=== PATIENT | male | born 1955 | race Caucasian/White ===

== ENCOUNTER → 2024-03-27 | Outpatient (CLI) | payer OTHER, SELFPAY ==
[2024-03-27 08:36] LABS: Glucose Estimated Average 140 mg/dL (80-131); Hemoglobin A1C 6.5 % Hgb (4.8-6.0)
[2024-03-27 08:41] LABS: Prostate Specific Antigen 0.29 ng/mL (0-4.00)
== END | disposition home or self-care (01) ==
LOC: COPL 07:25
PROVIDERS: PCP Family Medicine; Referring Provider Family Medicine; Visit Provider Family Medicine
DX: E11.65 Type 2 diabetes mellitus with hyperglycemia (principal)
CPT/HCPCS: 36415; 83036; 84153

== ENCOUNTER → 2024-04-09 | Outpatient (CLI) | payer OTHER, SELFPAY ==
[2024-04-09 12:45] LABS: Cardiac Risk Estimate 5.8 RATIO (4.0-6.7); Cholesterol 239 mg/dL (132-200); HDL Cholesterol 41 mg/dL (40-60); LDL Cholesterol,Calculated 121 mg/dL (0-130); Triglycerides 385 mg/dL (30-150)
[2024-04-09 12:58] LABS: Creatinine MALB Rnd Ur 19 mg/dL (30-125); Microalbumin, Random Urine < 3 mg/L (0-300)
== END | disposition home or self-care (01) ==
PROVIDERS: PCP Family Medicine; Referring Provider Family Medicine; Visit Provider Family Medicine
DX: E11.65 Type 2 diabetes mellitus with hyperglycemia (principal); E78.00 Pure hypercholesterolemia, unspecified
CPT/HCPCS: 36415; 80061; 82043; 82570

== ENCOUNTER 2024-06-19 06:36 | Day surgery (SDC) | payer OTHER, SELFPAY ==
[2024-06-17 08:49] VITALS: BMI 28.5
--- NOTE | 2024-06-17 08:59 | EKG_ITS ---
[facility] Test Date: 2024-06-17 Pat Name: ZACKERY WRIGHT Department: Room: - Gender: Male [employer]: TYLER : 1955 Requested By: Anurag Hdez Order Number: [id number] Reading MD: Anurag Hdez Measurements Intervals [place] Rate: 74 P: 17 NV: 177 QRS: 9 QRSD: 98 T: 53 QT: 415 QTc: 461 Interpretive Statements SINUS RHYTHM No previous ECG available for comparison /store/S0/[id number]
[2024-06-17 12:29] LABS: Basophils # (Auto) 0.1 Thou/mm3 (0.0-0.2); Basophils % (Auto) 1 % (0-2.5); Eosinophils # (Auto) 0.1 Thou/mm3 (0.0-0.5); Eosinophils % (Auto) 2 % (0-10); Hematocrit 42.2 % (41.0-53.0); Hemoglobin 14.5 g/dL (13.5-16.0); Immature Granulocytes % (Auto) 0 % (0-0); Immature Granulocytes Auto 0.02 Thou/mm3 (0.00-0.00); Lymphocytes # (Auto) 2.3 Thou/mm3 (1.0-4.8); Lymphocytes % (Auto) 36 % (10-50); Mean Corpuscular HGB Conc 34.4 g/dl (31.0-37.0); Mean Corpuscular Hemoglobin 32.4 pg (25.0-35.0); Mean Corpuscular Volume 94 fL (80-100); Monocytes # (Auto) 0.7 Thou/mm3 (0.0-0.8); Monocytes % (Auto) 11 % (0-12); Neutrophils # (Auto) 3.1 Thou/mm3 (1.8-7.7); Neutrophils % (Auto) 50 % (37-80); Nucleated Red Blood Cell % 0 /100 WBC (0); Platelet Count 522 Thou/mm3 (140-440); RDW Standard Deviation 42.5 fL (35.1-43.9); Red Blood Count 4.47 Miln/mm3 (4.50-5.90); White Blood Count 6.2 Thou/mm3 (3.8-10.6)
[2024-06-17 12:41] LABS: Anion Gap 9 (7-16); BUN/Creatinine Ratio 19 Ratio (12-20); Blood Urea Nitrogen 19 mg/dL (9-23); Carbon Dioxide 26.6 mMol/L (20.0-31.0); Chloride 103 mMol/L (98-107); Estimated Creatinine Clearance 74.7 mL/min (>60); Glucose 160 mg/dL (74-106); Osmolality,Calculated 282 (275-295); Potassium 4.4 mMol/L (3.4-5.1); Sodium 139 mMol/L (136-145); eGFR > 60 See Note
[2024-06-17 12:48] LABS: Partial Thromboplastin Time 27.2 Seconds (22.0-36.0); Prothrombin Time 10.5 Seconds (9.0-12.2)
[2024-06-19] VITALS (23 sets, daily range): BP systolic 155–197; BP diastolic 83–121; PULSE 70–89; RESP 13–20; TEMP 36.2–36.5; O2SAT 94–96
[2024-06-19] MEDS: HYDROcodone/APAP 5/325 TABLET 1 TAB PO (09:25)
[2024-06-19] MEDS: hydrALAZINE INJ 20 MG/ML VIAL 10 MG IV (09:26)
--- NOTE | 2024-06-19 10:20 | PC.NURSE ---
0908 patient is awake, alert, breathing unlabored, s/p C with PCI, TR band to right wrist, no bleeding or hematoma noted, will wait 2hrs to remove air from TR band. Report received from Hunter TORRES, patient to recover for 4 hrs and be discharged home 1hr after TR band removal. New medication brilinta will be ordered by . Pt having headache, norco ordered by dr Lou, will have patient eat jello, then give norco pain pill. 0925 norco given after eathing jello and sips of water. 1000 patient ambulated to bathroom and voided 1023 patient eating breakfast with family at bedside
--- NOTE | 2024-06-19 11:35 | PC.NURSE ---
1112 report given to jl mensah 1130 report received from jl mensah
--- NOTE | 2024-06-19 12:21 | PC.NURSE ---
1215 Tr band removed, no bleeding or hematoma noted
--- NOTE | 2024-06-19 12:55 | PC.NURSE ---
Dr. Lou at bedside talking to patient and family, new order received for amlodipine 5mg PO now
[2024-06-19] MEDS: amLODIPine BESYLATE 5 MG TABLET PO (12:57)
--- NOTE | 2024-06-19 13:06 | ESOP_ITS ---
RE: ZACKERY WRIGHT : 1955 DATE OF OPERATION: 06/19/2024 PROCEDURES PERFORMED: 1. Diagnostic left heart cardiac catheterization, selective coronary angiogram, and left ventricular angiogram, CPT 57128. 2. PCI/PTCA stent placement of the posterior descending branch of the right coronary artery, placement of drug-eluting stent, 2.25 x 26 mm Medtronic [place] drug-eluting stent, preprocedure stenosis 99%, post procedure stenosis 0%, BHASKAR flow preprocedure 2 and postprocedure 3. cpt 04986 RC 3. Additional vessel PTCA and angioplasty of the posterolateral branch of the right coronary artery with placement of drug-eluted stent 2.75 x 12 mm Synergy stent, preprocedure stenosis 90%, postprocedure stenosis 0%. BHASKAR flow preprocedure 3, postprocedure 3, CPT 36007. RC 59 4. Ultrasound-guided access of the right radial artery. 5. Conscious sedation 1 hour duration. DIAGNOSES: Angina pectoris with abnormal stress test. HISTORY AND INDICATIONS: The patient is a 68-year-old male with a history of hypertension, diabetes, and hypercholesterolemia, family history of heart disease. He has recurrent shortness of breath and chest pressure, class 3 angina. Cardiac stress test and nuclear scan showed inferior wall ischemia, coronary angiogram and cardiac catheterization was recommended to assess the patient is a candidate for coronary intervention and revascularization. DESCRIPTION OF PROCEDURE: The patient was brought to the cardiac catheterization laboratory. He was given 2 mg Versed and 75 mcg of fentanyl for conscious sedation. Right radial approach was taken. Right radial artery was cannulated by micropuncture. Ultrasound guidance was used to cannulate the right radial artery. A 6-Georgian Glides[place]ath was introduced. Radial cocktail was given with 3000 units of heparin and 200 mcg of nitroglycerin. Subsequently, diagnostic selective right and left coronary angiograms were performed by TIG-4, 5-Georgian diagnostic catheter. Left heart catheterization and left ventricular angiogram were performed by TIG-4 diagnostic catheter. Diagnostic procedure showed following findings. Right coronary artery is large and dominant showed evidence of 50% to 60% stenosis of the mid right coronary artery followed by large PDA and PL branches. The posterior descending artery, 2.25 mm vessel, showed 99% stenosis of the long lesion in the PDA proximal segment. The posterolateral branch is a very large vessel goes across 2.5 to 3 mm vessel 90% stenosis posterolateral branch. Left coronary system: Left main coronary artery is normal. Left anterior descending artery showed mild arthrosclerotic plaque, no significant stenosis. Ramus intermedius-first diagonal branch showed evidence of 60% proximal stenosis followed by 80% mid-segment stenosis, circumflex artery is non-dominant, appeared normal. Left ventricular pressure was recorded to be 146/2 mmHg, EDP 14 mmHg, aortic pressure 140/70 mmHg. No gradient across the aortic valve. Left ventricular angiogram showed normal left ventricular wall motion and ejection fraction are 70%, so following the diagnostic procedure, intervention was undertaken. The patient has multivessel disease and he is to proceed with PCI and stent placement of the right coronary artery, PDA, and PL branches. The patient was given additional heparin 4000 units. ACT was managed by therapeutic, proceeded with PCI, aspirin and Brilinta loading dose were given 90 mg of Brilinta and aspirin were given. A 6-Georgian FR4 guiding catheter was used to cannulate the right coronary artery. A 0.014 inch run-through guide wire was used to cross the lesion in the posterior descending artery successfully. Angioplasty was performed using a 2 mm x 15 mm balloon. Subsequently, a 2.25 x 26 mm Synergy drug-eluting stent was placed in the posterior descending artery. Subsequently, the guide wire was used to cross the lesion in the posterolateral branch, 2.5 mm balloon was used to dilate the lesion. A 2.75 x 12 mm Silverlake Medtronic stent were deployed successfully with . Final angiogram showed widely patent posterior descending artery and posterolateral branches with no residual stenosis, BHASKAR flow 3, mid RCA showed moderate disease and will be monitored closely. SUMMARY OF FINDINGS: 1. Multivessel coronary artery disease, underwent successful PCI, PTCA stent placement in the posterior descending artery of the right coronary artery. 2. Successful PCI and stent placement in the posterolateral branch of the right coronary artery with placement of drug-eluting stents as described. 3. The patient also has moderate to severe stenosis of the diagonal branch of the ramus intermedius, which will be addressed later. Also moderate stenosis of the right coronary artery will also be addressed later. Aggressive management of LDL cholesterol to a goal of 50 or below and management of diabetes mellitus are recommended. DT: 11:55:21 TT: 12:41:00 Ref: [id number] - TID: [id number] MTDD
--- NOTE | 2024-06-19 13:24 | PC.NURSE ---
patient blood pressure remain elevated, dr neumann made aware, new order received for losartan 50mg, waiting for pharmacy to bring med. Wiley to discharge patient home 1400 after losartand administration.
[2024-06-19] MEDS: LOSARTAN POTASSIUM 25 MG TABLET 50 MG PO (13:27)
--- NOTE | 2024-06-19 13:28 | PC.NURSE ---
losartan given PO, report given to Leia TORRES, will discharge patient 1400
[2024-06-19] MEDS: LABETALOL INJ 5 MG/ML VIAL 20 ML 10 MG IVP (14:00)
--- NOTE | 2024-06-19 15:02 | PC.NURSE ---
1405 report received from Leia TORRES, will get patient ready to go home. labetalol 10mg given IVP by leia TORRES at 1400 1415 blood pressure 170/94 within pre op parameters, new prescriptions have been called in by Dr. Lou for losartan 100mg and amlodipine 5mg to start tomorrow at home, patient and made aware. already picked up brilinta medication to start tonight. 1430 patient is awake, alert, breathing unlabored, able to tolerate food tray with no nausea or vomiting, able to ambulate to bathroom 3 times with no difficulty voiding. dressing to right wrist dry with no active bleeding or hematoma. Discharge instructions have been given. both patient and have talked to doctor and had questions answered, patient discharged home in wheelchair with all belongings.
== END 2024-06-19 14:30 | disposition home or self-care (01) ==
PROVIDERS: PCP Family Medicine; Referring Provider Internal Medicine Cardiovascular Disease; Visit Provider Internal Medicine Cardiovascular Disease
PROC: (CPT 93458; principal; 2024-06-19 07:30)
DX: I25.119 Atherosclerotic heart disease of native coronary artery with unspecified angina pectoris (principal); E11.9 Type 2 diabetes mellitus without complications; E78.00 Pure hypercholesterolemia, unspecified; I10 Essential (primary) hypertension; Z82.49 Family history of ischemic heart disease and other diseases of the circulatory system; Z01.810 Encounter for preprocedural cardiovascular examination
CPT/HCPCS: 93458; C9600; 36415; 80048; 85025; 85347; 85610; 85730; 93005; 99152; 99153; A4649; C1725; C1769; C1874; C1887; C1894; J0171; J0360; J0461; J1643; J2250; J2310; J2371; J3010; J3490; A9270; J1920; J2305

== ENCOUNTER → 2024-09-09 | Outpatient (CLI) | payer OTHER, SELFPAY ==
[2024-09-09 10:35] LABS: Glucose Estimated Average 140 mg/dL (80-131); Hemoglobin A1C 6.5 % Hgb (4.8-6.0)
[2024-09-09 10:41] LABS: Creatinine MALB Rnd Ur 43 mg/dL (30-125); Microalbumin Creat Ratio 14 mg/gCrea (<30); Microalbumin, Random Urine 6 mg/L (0-300)
[2024-09-09 10:44] LABS: Blood Urea Nitrogen 17 mg/dL (9-23); Creatinine (Component) 0.9 mg/dL (0.6-1.3); eGFR > 60 See Note
== END | disposition home or self-care (01) ==
LOC: COPL 09:50
PROVIDERS: PCP Family Medicine; Referring Provider Family Medicine; Visit Provider Family Medicine
DX: E11.65 Type 2 diabetes mellitus with hyperglycemia (principal)
CPT/HCPCS: 36415; 82043; 82565; 82570; 83036; 84520

== ENCOUNTER → 2024-12-18 | Outpatient (CLI) | payer OTHER, SELFPAY ==
[2024-12-18 08:47] LABS: Glucose Estimated Average 134 mg/dL (80-131); Hemoglobin A1C 6.3 % Hgb (4.8-6.0)
[2024-12-18 09:03] LABS: Creatinine MALB Rnd Ur 31 mg/dL (30-125); Microalbumin Creat Ratio 13 mg/gCrea (<30); Microalbumin, Random Urine 4 mg/L (0-300)
[2024-12-18 09:07] LABS: Alanine Aminotransferase 18 U/L (10-49); Albumin, Serum 5.0 gm/dL (3.4-4.8); Albumin/Globulin Ratio 2.1 (1.2-2.2); Alkaline Phosphatase 31 U/L (46-116); Anion Gap 9 (7-16); Aspartate Amino Transferase 17 U/L (0-34); BUN/Creatinine Ratio 17 Ratio (12-20); Bilirubin,Total 0.5 mg/dL (0.3-1.2); Blood Urea Nitrogen 15 mg/dL (9-23); Calcium 10.0 mg/dL (8.3-10.6); Calcium (Corrected) 10.0 mg/dL (8.5-10.1); Carbon Dioxide 24.3 mMol/L (20.0-31.0); Cardiac Risk Estimate 5.7 RATIO (4.0-6.7); Chloride 104 mMol/L (98-107); Cholesterol 257 mg/dL (132-200); Creatinine (Component) 0.9 mg/dL (0.6-1.3); Globulin 2.4 gm/dL (2.3-3.5); Glucose 144 mg/dL (74-106); HDL Cholesterol 45 mg/dL (40-60); LDL Cholesterol,Calculated 178 mg/dL (0-130); Osmolality,Calculated 277 (275-295); Potassium 4.0 mMol/L (3.4-5.1); Sodium 137 mMol/L (136-145); Total Protein 7.4 gm/dL (5.7-8.2); Triglycerides 172 mg/dL (30-150); eGFR > 60 See Note
== END | disposition home or self-care (01) ==
LOC: COPL 07:10
PROVIDERS: PCP Family Medicine; Referring Provider Family Medicine; Visit Provider Family Medicine
DX: E11.65 Type 2 diabetes mellitus with hyperglycemia (principal)
CPT/HCPCS: 36415; 80053; 80061; 82043; 82570; 83036

== ENCOUNTER → 2025-02-25 | Outpatient (CLI) | payer OTHER, SELFPAY ==
--- NOTE | 2025-02-25 14:20 | XR_ITS ---
Examination: Bone densitometry Date and time of exam: February 25, 2025, 1433 hours INDICATIONS: 69-year-old male with diagnosis age-related osteoporosis Technique: Lumbar spine and hip total bone mineralization values of an calculated. Peak reference and age match control results have been displayed. Findings: Lumbar spine total bone mineralization is 1.176 gm/cm2. This is 0.8 standard deviations above peak reference. This is 1.6 standard deviations above age-matched controls. Hip total bone mineralization is 1.087 gm/cm2 This is 0.40 standard deviations above peak reference. This is 0.9 standard deviations above age-matched controls Impression: There is normal mineralization based on lumbar spine measurements. There is normal mineralization based on hip measurements
== END | disposition home or self-care (01) ==
LOC: CDIM 14:09
PROVIDERS: PCP Family Medicine; Referring Provider Family Medicine; Visit Provider Family Medicine
DX: M81.0 Age-related osteoporosis without current pathological fracture (principal); M85.88 Other specified disorders of bone density and structure, other site
CPT/HCPCS: 77080